=== PATIENT | male | born 1985 | race Caucasian/White ===

== ENCOUNTER 2018-11-11 04:12 | Emergency (ER) | payer OTHER ==
[~2018-11-11] VITALS: Ht 190.5 cm; Wt 115.7 kg
[2018-11-11 04:14] VITALS: Ht 190.5 cm; Wt 115.7 kg
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
[2018-11-11] MEDS: DIPHTH/TET/ACEL PERTUSS (ADULT) 0.5 ML VIAL IM* ONE ×3 (04:36→04:41)
[2018-11-11] MEDS ORDERED: morphine 2 MG INJ ONE (05:19)
[2018-11-11] MEDS ORDERED: morphine 2 MG INJ IM STA (05:21)
[2018-11-11] MEDS ORDERED: PIPER-TAZO 3.375 GM IV (PMX) 100 ML IVPB ONE (06:00)
[2018-11-11] MEDS ORDERED: SOD CHLORIDE 0.9% 1,000 ML IV ONE (06:00)
[2018-11-11 06:11] VITALS: BP 139/80; PULSE 101; RESP 22
== END 2018-11-11 08:08 | disposition short-term general hospital (02) ==
LOC: E/R 04:12
DX: S02.609A Fracture of mandible, unspecified, initial encounter for closed fracture (principal); R51 Headache; Y04.8XXA Assault by other bodily force, initial encounter; Z23 Encounter for immunization
CPT/HCPCS: 70450; 70486; 90715; J2270; J2543; J7030; 90471; 96372; 96374